=== PATIENT | male | born 1980 | race African-American/Black ===

== ENCOUNTER 2024-02-10 01:12 | Inpatient (IN) | payer BC ==
[2024-02-10] MEDS: Furosemide 100 MG (10 mL) VIAL SLOW IVP SCH (04:00)
[2024-02-10] MEDS: Nitroglycerin 2% Ointment 1 INCH/1 GM Packet TOP SCH (04:05)
[2024-02-10] MEDS: Enoxaparin 30 MG (0.3 mL) SYRINGE SC SCH ×2 (04:13→10:31)
[2024-02-10] MEDS: Enoxaparin 100 MG (1 mL) SYRINGE SC SCH ×2 (04:13→10:31)
[2024-02-10 04:39] LABS: #Basophils 0.02 10x3/uL (0.0-0.2); #Eosinphils 0.03 10x3/uL (0.0-0.5); #Monocytes 1.27 10x3/uL (0.0-1.1); #Neutrophils 9.31 10x3/uL (1.5-8.4); %Basophils 0.2 % (0.0-2.0); %Eosinophils 0.3 % (0.0-6.0); %Lymphocytes 9.3 % (18.0-47.0); %Monocytes 10.8 % (0.0-10.0); %Neutrophils 78.7 % (40.0-75.0); Hematocrit 33.8 % (38.8-50.0); Mean Corpuscular HGB CONC 29.6 g/dL (32.0-36.0); Mean Corpuscular Hemoglobin 18.9 pg (27.0-33.0); Mean Corpuscular Volume 63.8 fl (81.2-95.1); Mean Platelet Volume 9.9 fl (7.4-10.4); Platelet Count 424 10x3/uL (150-450); RBC Distribution Width 20.6 % (11.5-14.5); White Blood Cell (WBC) Count 11.8 10x3/uL (3.5-10.5)
[2024-02-10 04:55] LABS: ALT (SGPT) 979 U/L (8-55); AST (SGOT) 631 U/L (5-34); Albumin 2.9 g/dL (3.5-5.0); Alkaline Phosphatase 211 U/L (40-110); Anion Gap 20 mmol/L (10-20); BUN (Urea Nitrogen) 43 mg/dL (8.9-20.6); Bilirubin, Total 1.5 mg/dL (0.2-1.2); Calc. Creatinine Clearance 84 mL/min (70-130); Calcium 8.5 mg/dL (7.8-10.44); Carbon Dioxide 18 mmol/L (22-29); Chloride 105 mmol/L (98-107); Estimated GFR 41; Globulin 3.3 g/dL (2.4-3.5); Glucose 99 mg/dL (70-105); Iron 15 ug/dL (65-175); Iron Binding Capacity, Total 346 mcg/dL (261-462); Magnesium 2.4 mg/dL (1.6-2.6); Potassium 4.5 mmol/L (3.5-5.1); Protein, Total 6.2 g/dL (6.0-8.3); Sodium 138 mmol/L (136-145)
[2024-02-10 05:02] LABS: Troponin I 0.068 ng/mL (< 0.028)
[2024-02-10 05:03] LABS: Bilirubin Neg (Negative); Blood, Urine 150 (Negative); Clarity Clear (Clear); Glucose, Urine (Dipstick) Normal (Negative); Ketone, Urine Negative (Negative); Leukocyte Negative (Negative); Nitrite Negative (Negative); Protein, Urine (Dipstick) 30 mg/dl (Neg-Trace); Specific Gravity, Urine 1.015 (1.005-1.030); Urobilinogen Normal mg/dL (Less than 2)
[2024-02-10 05:07] LABS: Ferritin 21.43 ng/mL (22-322); Thyroid Stimulating Hormone 1.096 uIU/mL (0.35-4.94)
[2024-02-10 05:08] LABS: Microcytosis MODERATE=15-30 cells (100X) (0-5/hpf); Platelet Adequacy Comment Appears Adequate
[2024-02-10 05:10] LABS: Anisocytosis SLIGHT = 6-15 cells (100X) (0-5/hpf); Crenated RBC SLIGHT = 1-5 cells (100X) (None Seen); Elliptocytes SLIGHT = 2-5 cells (100X) (0-1/hpf); Hypochromia MODERATE=16-30 cells (100X) (0-5/hpf)
[2024-02-10 05:10] LABS: Amphetamine Not Detected (NotDetected); Barbiturates Screen Not Detected (NotDetected); Benzodiazepine Screen Not Detected (NotDetected); Cocaine Metabolite Screen Not Detected (NotDetected); Methadone Not Detected (NotDetected); Methamphetamine Not Detected (NotDetected); Opiate Screen Not Detected (NotDetected); Oxycodone Screen Not Detected (NotDetected); Phencyclidine (PCP) Not Detected (NotDetected); THC/Cannabinoid Screen Not Detected (NotDetected); Tricyclic Screen Not Detected (NotDetected)
[2024-02-10 05:14] LABS: Bacteria/HPF Rare-Few HPF (None Seen); Squamous Epithelial 0-3 HPF (0-3); WBC/HPF 0-3 HPF (0-3)
[2024-02-10] MEDS ORDERED: Iron Sucrose Complex 200 MG in Sodium Chloride 0.9% 100 ML IVPB SCH (09:15)
[2024-02-10] MEDS: Lisinopril 2.5 MG TAB PO SCH (10:31)
[2024-02-10] MEDS: Aspirin 81 mg Enteric Coated Tablet PO SCH (10:31)
[2024-02-10] MEDS: Carvedilol 3.125 MG TAB PO SCH (10:31)
[2024-02-10] MEDS: Enoxaparin 120 MG/0.8 ML SYRINGE SC SCH (10:32)
[2024-02-10] MEDS: Sodium Ferric Gluconate 250 MG in Sodium Chloride 0.9% 250 ML 250 ML IVPB SCH (11:33)
[2024-02-10 15:06] LABS: Magnesium 2.2 mg/dL (1.6-2.6)
[2024-02-10] MEDS: hydrOXYzine 25 MG TAB PO SCH (15:28)
[2024-02-10] MEDS ORDERED: Furosemide 40 MG TAB PO SCH (18:00)
[2024-02-10] MEDS: Furosemide 40 MG (4 mL) VIAL IVP SCH (18:19)
[2024-02-11 04:21] LABS: #Basophils 0.09 10x3/uL (0.0-0.2); #Eosinphils 0.88 10x3/uL (0.0-0.5); #Monocytes 1.52 10x3/uL (0.0-1.1); #Neutrophils 8.79 10x3/uL (1.5-8.4); %Basophils 0.7 % (0.0-2.0); %Eosinophils 6.4 % (0.0-6.0); %Lymphocytes 17.3 % (18.0-47.0); %Neutrophils 63.4 % (40.0-75.0); Hematocrit 30.9 % (38.8-50.0); Hemoglobin 9.1 g/dL (13.5-17.5); Mean Corpuscular HGB CONC 29.4 g/dL (32.0-36.0); Mean Corpuscular Hemoglobin 18.9 pg (27.0-33.0); Mean Corpuscular Volume 64.2 fl (81.2-95.1); Mean Platelet Volume 10.2 fl (7.4-10.4); Platelet Count 375 10x3/uL (150-450); RBC Distribution Width 20.7 % (11.5-14.5); Red Blood Cell (RBC) Count 4.81 10x6/uL (4.32-5.72); White Blood Cell (WBC) Count 13.8 10x3/uL (3.5-10.5)
[2024-02-11 04:29] LABS: Anion Gap 14 mmol/L (10-20); BUN (Urea Nitrogen) 42 mg/dL (8.9-20.6); Calc. Creatinine Clearance 103 mL/min (70-130); Calcium 7.6 mg/dL (7.8-10.44); Carbon Dioxide 26 mmol/L (22-29); Chloride 100 mmol/L (98-107); Estimated GFR 54; Glucose 128 mg/dL (70-105); Potassium 3.2 mmol/L (3.5-5.1); Sodium 137 mmol/L (136-145)
[2024-02-11] MEDS ORDERED: Furosemide 40 MG TAB PO SCH (09:00)
[2024-02-11 10:14] LABS: ALT (SGPT) 689 U/L (8-55); AST (SGOT) 217 U/L (5-34); Albumin 2.8 g/dL (3.5-5.0); Alkaline Phosphatase 191 U/L (40-110); Bilirubin, Direct 0.3 mg/dL (0.1-0.3); Bilirubin, Total 0.7 mg/dL (0.2-1.2); Protein, Total 6.1 g/dL (6.0-8.3)
[2024-02-11] MEDS: Furosemide 40 MG (4 mL) VIAL SLOW IVP SCH ×2 (10:33→13:18)
[2024-02-11] MEDS: Enoxaparin 40 MG (0.4 mL) SYRINGE SC SCH (10:44)
[2024-02-11] MEDS: Potassium Chloride 20 MEQ TAB PO SCH (10:44)
[2024-02-11] MEDS: hydrOXYzine 25 MG TAB PO PRN (10:44)
[2024-02-11] MEDS: Lisinopril 5 MG TAB PO SCH (10:44)
[2024-02-11] MEDS: Carvedilol 12.5 MG TAB PO SCH ×2 (10:45→21:00)
[2024-02-11 12:10] LABS: Uric Acid 13.9 mg/dL (3.5-7.2)
[2024-02-11] MEDS: Spironolactone 25 MG TAB PO SCH (15:23)
[2024-02-12 04:17] LABS: #Basophils 0.07 10x3/uL (0.0-0.2); #Eosinphils 0.92 10x3/uL (0.0-0.5); #Monocytes 1.35 10x3/uL (0.0-1.1); #Neutrophils 8.33 10x3/uL (1.5-8.4); %Basophils 0.5 % (0.0-2.0); %Eosinophils 7.1 % (0.0-6.0); %Lymphocytes 15.9 % (18.0-47.0); %Monocytes 10.5 % (0.0-10.0); %Neutrophils 64.8 % (40.0-75.0); Hemoglobin 9.6 g/dL (13.5-17.5); Mean Corpuscular HGB CONC 29.1 g/dL (32.0-36.0); Mean Corpuscular Volume 65.5 fl (81.2-95.1); Platelet Count 405 10x3/uL (150-450); RBC Distribution Width 21.4 % (11.5-14.5); Red Blood Cell (RBC) Count 5.04 10x6/uL (4.32-5.72); White Blood Cell (WBC) Count 12.9 10x3/uL (3.5-10.5)
[2024-02-12 04:42] LABS: Anion Gap 14 mmol/L (10-20); BUN (Urea Nitrogen) 26 mg/dL (8.9-20.6); Calc. Creatinine Clearance 139 mL/min (70-130); Carbon Dioxide 29 mmol/L (22-29); Chloride 102 mmol/L (98-107); Estimated GFR 78; Glucose 112 mg/dL (70-105); Potassium 3.6 mmol/L (3.5-5.1); Sodium 141 mmol/L (136-145)
[2024-02-12] MEDS: Enoxaparin 40 MG (0.4 mL) SYRINGE SC SCH (08:36)
[2024-02-12] MEDS: Empagliflozin 10 MG TAB PO SCH (08:36)
[2024-02-12] MEDS: Lisinopril 5 MG TAB PO SCH (08:37)
[2024-02-12] MEDS: Spironolactone 25 MG TAB PO SCH (08:37)
[2024-02-12] MEDS: Furosemide 40 MG TAB PO SCH (08:37)
[2024-02-12] MEDS: Lisinopril 20 MG TAB PO SCH (11:04)
[2024-02-12] MEDS: Valsartan 80 MG TAB PO SCH ×2 (13:27→20:23)
[2024-02-12 19:06] LABS: Hemoglobin A1c 5.4 % (4.0-6.0)
[2024-02-13 03:42] LABS: #Basophils 0.06 10x3/uL (0.0-0.2); #Eosinphils 0.61 10x3/uL (0.0-0.5); #Monocytes 1.17 10x3/uL (0.0-1.1); #Neutrophils 8.21 10x3/uL (1.5-8.4); %Basophils 0.5 % (0.0-2.0); %Eosinophils 4.9 % (0.0-6.0); %Lymphocytes 17.4 % (18.0-47.0); %Monocytes 9.4 % (0.0-10.0); %Neutrophils 65.6 % (40.0-75.0); Hematocrit 31.7 % (38.8-50.0); Hemoglobin 9.2 g/dL (13.5-17.5); Mean Corpuscular Hemoglobin 19.3 pg (27.0-33.0); Mean Corpuscular Volume 66.6 fl (81.2-95.1); Mean Platelet Volume 9.8 fl (7.4-10.4); Platelet Count 419 10x3/uL (150-450); RBC Distribution Width 21.5 % (11.5-14.5); Red Blood Cell (RBC) Count 4.76 10x6/uL (4.32-5.72); White Blood Cell (WBC) Count 12.5 10x3/uL (3.5-10.5)
[2024-02-13 03:59] LABS: Anion Gap 12 mmol/L (10-20); BUN (Urea Nitrogen) 26 mg/dL (8.9-20.6); Calc. Creatinine Clearance 127 mL/min (70-130); Calcium 8.4 mg/dL (7.8-10.44); Carbon Dioxide 26 mmol/L (22-29); Chloride 106 mmol/L (98-107); Estimated GFR 71; Glucose 122 mg/dL (70-105); Potassium 3.9 mmol/L (3.5-5.1); Sodium 140 mmol/L (136-145)
[2024-02-13 05:15] VITALS: BMI 36.8
[2024-02-13] MEDS: Furosemide 40 MG TAB PO SCH (08:08)
[2024-02-13] MEDS: Carvedilol 25 MG TAB PO SCH (08:12)
[2024-02-13] MEDS: Valsartan 80 MG TAB PO SCH (08:44)
[2024-02-13] MEDS: Ferrous Sulfate 325 MG TAB PO SCH (08:45)
[2024-02-13 09:18] VITALS: BP 150/103; TEMP 98.3
[2024-02-13] MEDS ORDERED: Valsartan 80 MG TAB PO SCH (21:00)
== END 2024-02-13 11:40 | disposition home or self-care (01) | DRG 291 ==
LOC: OBSVTOIN 02:10 → CSHTELE 02:10 → CSHIMCU 02-12 06:34
PROVIDERS: ADMIT Family Medicine; ATTEND Internal Medicine
DX: I13.0 Hypertensive heart and chronic kidney disease with heart failure and stage 1 through stage 4 chronic kidney disease, or unspecified chronic kidney disease (principal); I50.43 Acute on chronic combined systolic (congestive) and diastolic (congestive) heart failure; N17.9 Acute kidney failure, unspecified; F17.210 Nicotine dependence, cigarettes, uncomplicated; N18.31 Chronic kidney disease, stage 3a; D50.9 Iron deficiency anemia, unspecified; R74.8 Abnormal levels of other serum enzymes; F41.9 Anxiety disorder, unspecified; E66.9 Obesity, unspecified; E87.6 Hypokalemia; K76.0 Fatty (change of) liver, not elsewhere classified; E73.9 Lactose intolerance, unspecified; Z86.16 Personal history of COVID-19; Z82.49 Family history of ischemic heart disease and other diseases of the circulatory system; Z68.36 Body mass index [BMI] 36.0-36.9, adult
CPT/HCPCS: 36415; 76705; 80048; 80053; 80076; 80306; 81001; 82728; 83036; 83540; 83550; 83735; 83880; 84443; 84484; 84550; 85025; 85060; 93005; 93010; 93306; 93970; 94760; J1650; J1940; J2916; J7050